=== PATIENT | female | born 1980 | race Caucasian/White ===

== ENCOUNTER 2018-04-20 20:43 | Emergency (ER) | payer OTHER ==
[~2018-04-20] VITALS: Ht 177.8 cm; Wt 117.5 kg
[2018-04-20 20:47] VITALS: Ht 177.8 cm; Wt 117.5 kg
[2018-04-20 22:03] VITALS: BP 129/88
== END 2018-04-20 22:03 | disposition home or self-care (01) ==
LOC: ED 20:43
DX: O13.2 Gestational [pregnancy-induced] hypertension without significant proteinuria, second trimester (principal); Z3A.23 23 weeks gestation of pregnancy

== ENCOUNTER 2020-02-23 13:56 | Inpatient (IN) | payer OTHER, SELFPAY ==
[~2020-02-23] VITALS: Ht 177.8 cm; Wt 127.0 kg
[2020-02-23 14:01] VITALS: Ht 177.8 cm; Wt 127.0 kg
[2020-02-23 15:51] LABS: BASOPHIL % 0.1 % (0-2); PLATELET COUNT 202 x10^3mcL (130-400); RED CELL DISTRIBUTION WIDTH 13.3 % (11.5-14.5)
[2020-02-23 16:03] LABS: CALCIUM 9.2 mg/dL (8.5-10.1); CARBON DIOXIDE 26.4 mmol/L (21-32); CHLORIDE SERUM 98 mmol/L (98-107); CREATININE SERUM 0.9 mg/dL (0.6-1.0); GFR1 > 60 mL/min; GLUCOSE SERUM 142 mg/dL (74-106); POTASSIUM SERUM 4.1 mmol/L (3.5-5.1); SODIUM SERUM 133 mmol/L (136-145)
[2020-02-23 16:15] LABS: ALKALINE PHOSPHATASE 108 U/L (46-116); ALT/SGPT 77 U/L (14-59); AST/SGOT 51 U/L (15-37); BILIRUBIN TOTAL 0.5 mg/dL (0.20-1.00); LACTIC DEHYDROGENASE (LDH) 414 U/L (100-190)
[2020-02-23 16:17] LABS: ALBUMIN 2.9 g/dL (3.4-5.0); TOTAL PROTEIN, SERUM 8.3 g/dL (6.4-8.2)
[2020-02-23 16:25] LABS: C REACTIVE PROTEIN 26.6 mg/dL (<=0.9)
[2020-02-23 17:03] LABS: UA SPECIFIC GRAVITY >=1.030 (1.005-1.035); microscopic required? YES; urine erythrocyte 2+ (NEGATIVE)
[2020-02-23 17:17] VITALS: BP 137/81
[2020-02-23] MEDS ORDERED: BUPROPION300 M1 PO (17:28)
[2020-02-24 00:43] VITALS: BP 117/74
[2020-02-24 05:56] VITALS: BP 112/71
[2020-02-24 08:01] LABS: ALKALINE PHOSPHATASE 96 U/L (46-116); ALT/SGPT 62 U/L (14-59); AST/SGOT 41 U/L (15-37); BILIRUBIN TOTAL 0.31 mg/dL (0.20-1.00); CALCIUM 8.8 mg/dL (8.5-10.1); CARBON DIOXIDE 27.2 mmol/L (21-32); CHLORIDE SERUM 102 mmol/L (98-107); CREATININE SERUM 0.7 mg/dL (0.6-1.0); GFR1 > 60 mL/min; GLUCOSE SERUM 146 mg/dL (74-106); MAGNESIUM 2.6 mg/dL (1.8-2.4); POTASSIUM SERUM 4.1 mmol/L (3.5-5.1); SODIUM SERUM 137 mmol/L (136-145); TOTAL PROTEIN, SERUM 7.4 g/dL (6.4-8.2)
[2020-02-24 08:03] LABS: ALBUMIN 2.4 g/dL (3.4-5.0)
[2020-02-24 09:13] LABS: BASOPHIL % 0.1 % (0-2); PLATELET COUNT 221 x10^3mcL (130-400); RED CELL DISTRIBUTION WIDTH 13.5 % (11.5-14.5)
[2020-02-24 09:16] VITALS: BP 119/70
[2020-02-24 12:29] VITALS: BP 120/70
[2020-02-24 21:14] VITALS: BP 108/64
[2020-02-25 05:45] VITALS: BP 129/64
[2020-02-25 07:27] LABS: ALKALINE PHOSPHATASE 100 U/L (46-116); ALT/SGPT 61 U/L (14-59); AST/SGOT 62 U/L (15-37); CARBON DIOXIDE 29.8 mmol/L (21-32); CHLORIDE SERUM 101 mmol/L (98-107); CREATININE SERUM 0.8 mg/dL (0.6-1.0); GFR1 > 60 mL/min; GLUCOSE SERUM 119 mg/dL (74-106); MAGNESIUM 2.2 mg/dL (1.8-2.4); POTASSIUM SERUM 4.4 mmol/L (3.5-5.1); SODIUM SERUM 138 mmol/L (136-145); TOTAL PROTEIN, SERUM 7.3 g/dL (6.4-8.2)
[2020-02-25 07:31] LABS: ALBUMIN 2.3 g/dL (3.4-5.0)
[2020-02-25 07:52] LABS: BASOPHIL % 0.3 % (0-2); PLATELET COUNT 257 x10^3mcL (130-400); RED CELL DISTRIBUTION WIDTH 13.7 % (11.5-14.5)
[2020-02-25 08:59] VITALS: BP 101/48
[2020-02-25 12:21] VITALS: BP 110/72
[2020-02-25 16:58] VITALS: BP 117/73
[2020-02-25 22:24] VITALS: BP 123/77
[2020-02-26 05:00] VITALS: BP 116/60
[2020-02-26 07:15] LABS: BASOPHIL % 0.4 % (0-2); PLATELET COUNT 288 x10^3mcL (130-400); RED CELL DISTRIBUTION WIDTH 13.9 % (11.5-14.5)
[2020-02-26 07:34] LABS: ALBUMIN 2.3 g/dL (3.4-5.0); ALKALINE PHOSPHATASE 98 U/L (46-116); ALT/SGPT 70 U/L (14-59); AST/SGOT 73 U/L (15-37); BILIRUBIN TOTAL 0.29 mg/dL (0.20-1.00); CHLORIDE SERUM 103 mmol/L (98-107); CREATININE SERUM 0.8 mg/dL (0.6-1.0); GFR1 > 60 mL/min; GLUCOSE SERUM 105 mg/dL (74-106); MAGNESIUM 2.3 mg/dL (1.8-2.4); POTASSIUM SERUM 4.5 mmol/L (3.5-5.1); SODIUM SERUM 142 mmol/L (136-145); TOTAL PROTEIN, SERUM 7.2 g/dL (6.4-8.2)
[2020-02-26 08:47] VITALS: BP 105/60
[2020-02-26 12:11] VITALS: BP 124/82
[2020-02-26 16:12] VITALS: BP 112/68
[2020-02-26 21:29] VITALS: BP 135/85
[2020-02-27 06:18] VITALS: BP 109/69
[2020-02-27 07:36] LABS: BASOPHIL % 0.1 % (0-2); PLATELET COUNT 358 x10^3mcL (130-400); RED CELL DISTRIBUTION WIDTH 12.9 % (11.5-14.5)
[2020-02-27 07:39] LABS: ALKALINE PHOSPHATASE 97 U/L (46-116); ALT/SGPT 86 U/L (14-59); AST/SGOT 88 U/L (15-37); BILIRUBIN DIRECT 0.18 mg/dL (0.0-0.2); BILIRUBIN TOTAL 0.4 mg/dL (0.20-1.00); CALCIUM 9.2 mg/dL (8.5-10.1); CARBON DIOXIDE 31.9 mmol/L (21-32); CHLORIDE SERUM 99 mmol/L (98-107); CREATININE SERUM 0.8 mg/dL (0.6-1.0); GFR1 > 60 mL/min; GLUCOSE SERUM 110 mg/dL (74-106); MAGNESIUM 2.2 mg/dL (1.8-2.4); POTASSIUM SERUM 4.6 mmol/L (3.5-5.1); SODIUM SERUM 137 mmol/L (136-145); TOTAL PROTEIN, SERUM 7.6 g/dL (6.4-8.2)
[2020-02-27 07:40] LABS: ALBUMIN 2.4 g/dL (3.4-5.0)
[2020-02-27 09:20] VITALS: BP 94/47
[2020-02-27 13:35] VITALS: BP 91/49
[2020-02-27 17:29] VITALS: BP 104/64
[2020-02-27 20:42] VITALS: BP 115/72
[2020-02-28 04:22] VITALS: BP 103/58
[2020-02-28 08:05] LABS: BILIRUBIN DIRECT 0.11 mg/dL (0.0-0.2); BILIRUBIN TOTAL 0.3 mg/dL (0.20-1.00); TOTAL PROTEIN, SERUM 6.4 g/dL (6.4-8.2)
[2020-02-28 08:06] LABS: ALKALINE PHOSPHATASE 104 U/L (46-116); ALT/SGPT 107 U/L (14-59); AST/SGOT 107 U/L (15-37); BILIRUBIN TOTAL 0.3 mg/dL (0.20-1.00); CALCIUM 8.8 mg/dL (8.5-10.1); CARBON DIOXIDE 27.8 mmol/L (21-32); CHLORIDE SERUM 99 mmol/L (98-107); CREATININE SERUM 0.7 mg/dL (0.6-1.0); GFR1 > 60 mL/min; GLUCOSE SERUM 107 mg/dL (74-106); MAGNESIUM 2.1 mg/dL (1.8-2.4); POTASSIUM SERUM 4.4 mmol/L (3.5-5.1); SODIUM SERUM 135 mmol/L (136-145); TOTAL PROTEIN, SERUM 7.1 g/dL (6.4-8.2)
[2020-02-28 08:09] LABS: ALBUMIN 2.3 g/dL (3.4-5.0)
[2020-02-28 08:12] LABS: ALBUMIN 2.3 g/dL (3.4-5.0)
[2020-02-28 08:17] VITALS: BP 92/56
[2020-02-28 08:56] LABS: BASOPHIL % 0.6 % (0-2); PLATELET COUNT 344 x10^3mcL (130-400); RED CELL DISTRIBUTION WIDTH 12.7 % (11.5-14.5)
[2020-02-28 11:27] VITALS: BP 122/69
[2020-02-28 17:28] VITALS: BP 119/75
[2020-02-28 20:45] VITALS: BP 116/77
[2020-02-29 05:38] VITALS: BP 100/53
[2020-02-29 07:30] LABS: CALCIUM 9.2 mg/dL (8.5-10.1); CARBON DIOXIDE 27.5 mmol/L (21-32); CHLORIDE SERUM 102 mmol/L (98-107); CREATININE SERUM 0.8 mg/dL (0.6-1.0); GFR1 > 60 mL/min; GLUCOSE SERUM 168 mg/dL (74-106); MAGNESIUM 2.4 mg/dL (1.8-2.4); POTASSIUM SERUM 3.9 mmol/L (3.5-5.1); SODIUM SERUM 136 mmol/L (136-145)
[2020-02-29 08:41] VITALS: BP 104/578
[2020-02-29 10:39] LABS: BILIRUBIN DIRECT 0.12 mg/dL (0.0-0.2); BILIRUBIN TOTAL 0.2 mg/dL (0.20-1.00); TOTAL PROTEIN, SERUM 6.6 g/dL (6.4-8.2)
[2020-02-29 10:45] LABS: ALBUMIN 2.5 g/dL (3.4-5.0)
[2020-02-29 13:07] VITALS: BP 115/82
[2020-02-29 17:54] VITALS: BP 98/54
[2020-02-29 21:29] VITALS: BP 106/63
[2020-03-01 05:41] VITALS: BP 120/67
[2020-03-01 07:43] VITALS: BP 111/77
[2020-03-01 08:08] LABS: BILIRUBIN DIRECT 0.11 mg/dL (0.0-0.2); BILIRUBIN TOTAL 0.22 mg/dL (0.20-1.00); TOTAL PROTEIN, SERUM 7.2 g/dL (6.4-8.2)
[2020-03-01 08:17] LABS: ALBUMIN 2.4 g/dL (3.4-5.0)
[2020-03-01 12:20] VITALS: BP 111/68
[2020-03-01 17:29] VITALS: BP 117/76
[2020-03-01 21:20] VITALS: BP 107/61
[2020-03-02 05:13] VITALS: BP 119/72
[2020-03-02 06:57] LABS: CARBON DIOXIDE 27.1 mmol/L (21-32); CHLORIDE SERUM 100 mmol/L (98-107); CREATININE SERUM 0.7 mg/dL (0.6-1.0); GFR1 > 60 mL/min; GLUCOSE SERUM 116 mg/dL (74-106); MAGNESIUM 2.3 mg/dL (1.8-2.4); POTASSIUM SERUM 3.9 mmol/L (3.5-5.1); SODIUM SERUM 134 mmol/L (136-145)
[2020-03-02 07:07] LABS: BASOPHIL % 0.3 % (0-2); PLATELET COUNT 358 x10^3mcL (130-400); RED CELL DISTRIBUTION WIDTH 12.9 % (11.5-14.5)
[2020-03-02 09:32] VITALS: BP 92/50
[2020-03-02 13:56] VITALS: BP 119/64
[2020-03-02 17:04] VITALS: BP 99/60
[2020-03-02 23:02] VITALS: BP 108/59
[2020-03-03 06:10] VITALS: BP 104/56
[2020-03-03 09:00] VITALS: BP 105/61
[2020-03-03 12:28] VITALS: BP 103/63
[2020-03-03 17:43] VITALS: BP 111/71
[2020-03-03 21:22] VITALS: BP 98/60
[2020-03-04 06:40] VITALS: BP 112/73
[2020-03-04 08:13] LABS: PLATELET COUNT 264 x10^3mcL (130-400); RED CELL DISTRIBUTION WIDTH 13.3 % (11.5-14.5)
[2020-03-04 08:20] LABS: CALCIUM 9.3 mg/dL (8.5-10.1); CARBON DIOXIDE 28.2 mmol/L (21-32); CHLORIDE SERUM 103 mmol/L (98-107); CREATININE SERUM 0.7 mg/dL (0.6-1.0); GFR1 > 60 mL/min; GLUCOSE SERUM 121 mg/dL (74-106); MAGNESIUM 2.3 mg/dL (1.8-2.4); POTASSIUM SERUM 4.3 mmol/L (3.5-5.1); SODIUM SERUM 137 mmol/L (136-145)
[2020-03-04 08:37] LABS: BASOPHIL % 8.6 % (0-2)
[2020-03-04 09:45] VITALS: BP 97/52
[2020-03-04 12:21] VITALS: BP 113/71
[2020-03-04 16:20] VITALS: BP 115/76
[2020-03-04 21:08] VITALS: BP 98/50
[2020-03-05 05:52] VITALS: BP 108/63
[2020-03-05 08:28] LABS: BASOPHIL % 0.8 % (0.2-1.3); PLATELET COUNT 268 x10^3mcL (179-408); RED CELL DISTRIBUTION WIDTH 14.2 % (12.3-17.7)
[2020-03-05 08:44] VITALS: BP 96/57
[2020-03-05 08:50] LABS: ALBUMIN 2.7 g/dL (3.4-5.0); ALKALINE PHOSPHATASE 109 U/L (46-116); ALT/SGPT 292 U/L (14-59); AST/SGOT 117 U/L (15-37); BILIRUBIN TOTAL 0.4 mg/dL (0.20-1.00); CALCIUM 8.9 mg/dL (8.5-10.1); CHLORIDE SERUM 101 mmol/L (98-107); CREATININE SERUM 0.7 mg/dL (0.6-1.0); GFR1 > 60 mL/min; GLUCOSE SERUM 117 mg/dL (74-106); MAGNESIUM 2.3 mg/dL (1.8-2.4); SODIUM SERUM 137 mmol/L (136-145); TOTAL PROTEIN, SERUM 7.1 g/dL (6.4-8.2)
[2020-03-05 12:21] VITALS: BP 96/61
[2020-03-05 15:38] VITALS: BP 104/69
[2020-03-05 22:01] VITALS: BP 99/63
[2020-03-06 06:17] VITALS: BP 106/64
[2020-03-06 07:32] LABS: BASOPHIL % 0.7 % (0.2-1.3); PLATELET COUNT 249 x10^3mcL (179-408); RED CELL DISTRIBUTION WIDTH 13.9 % (12.3-17.7)
[2020-03-06 08:25] LABS: ALKALINE PHOSPHATASE 111 U/L (46-116); ALT/SGPT 274 U/L (14-59); AST/SGOT 112 U/L (15-37); BILIRUBIN TOTAL 0.4 mg/dL (0.20-1.00); CARBON DIOXIDE 29.8 mmol/L (21-32); CHLORIDE SERUM 101 mmol/L (98-107); CREATININE SERUM 0.8 mg/dL (0.6-1.0); GFR1 > 60 mL/min; GLUCOSE SERUM 123 mg/dL (74-106); MAGNESIUM 2.2 mg/dL (1.8-2.4); POTASSIUM SERUM 4.5 mmol/L (3.5-5.1); SODIUM SERUM 137 mmol/L (136-145); TOTAL PROTEIN, SERUM 6.9 g/dL (6.4-8.2)
[2020-03-06 08:30] LABS: ALBUMIN 2.7 g/dL (3.4-5.0)
[2020-03-06 09:21] VITALS: BP 126/80
[2020-03-06 11:53] VITALS: BP 101/61
[2020-03-06 16:55] VITALS: BP 129/85
[2020-03-06 20:05] VITALS: BP 102/67
[2020-03-07 05:23] VITALS: BP 99/57
[2020-03-07 07:30] LABS: PLATELET COUNT 239 x10^3mcL (179-408); RED CELL DISTRIBUTION WIDTH 14.1 % (12.3-17.7)
[2020-03-07 08:57] VITALS: BP 97/65
[2020-03-07 09:25] LABS: ALKALINE PHOSPHATASE 117 U/L (46-116); ALT/SGPT 248 U/L (14-59); AST/SGOT 80 U/L (15-37); BILIRUBIN TOTAL 0.35 mg/dL (0.20-1.00); CARBON DIOXIDE 31.2 mmol/L (21-32); CHLORIDE SERUM 103 mmol/L (98-107); CREATININE SERUM 0.7 mg/dL (0.6-1.0); GFR1 > 60 mL/min; GLUCOSE SERUM 127 mg/dL (74-106); MAGNESIUM 2.3 mg/dL (1.8-2.4); POTASSIUM SERUM 4.9 mmol/L (3.5-5.1); SODIUM SERUM 140 mmol/L (136-145); TOTAL PROTEIN, SERUM 7.1 g/dL (6.4-8.2)
[2020-03-07 09:28] LABS: ALBUMIN 2.8 g/dL (3.4-5.0)
[2020-03-07 12:29] VITALS: BP 116/76
[2020-03-07 16:29] VITALS: BP 116/72
[2020-03-07 23:15] VITALS: BP 105/67
[2020-03-08 05:25] VITALS: BP 114/68; BP 134/79
[2020-03-08 08:21] LABS: BASOPHIL % 1.1 % (0.2-1.3); PLATELET COUNT 222 x10^3mcL (179-408); RED CELL DISTRIBUTION WIDTH 14.2 % (12.3-17.7)
[2020-03-08 08:49] VITALS: BP 103/54
[2020-03-08 09:46] LABS: ALKALINE PHOSPHATASE 111 U/L (46-116); ALT/SGPT 218 U/L (14-59); AST/SGOT 76 U/L (15-37); BILIRUBIN TOTAL 0.3 mg/dL (0.20-1.00); CALCIUM 9.2 mg/dL (8.5-10.1); CARBON DIOXIDE 26.5 mmol/L (21-32); CHLORIDE SERUM 103 mmol/L (98-107); CREATININE SERUM 0.6 mg/dL (0.6-1.0); GFR1 > 60 mL/min; GLUCOSE SERUM 141 mg/dL (74-106); MAGNESIUM 2.3 mg/dL (1.8-2.4); POTASSIUM SERUM 4.3 mmol/L (3.5-5.1); SODIUM SERUM 139 mmol/L (136-145); TOTAL PROTEIN, SERUM 7.1 g/dL (6.4-8.2)
[2020-03-08 09:47] LABS: ALBUMIN 2.9 g/dL (3.4-5.0)
[2020-03-08 11:52] VITALS: BP 116/77
[2020-03-08 16:34] VITALS: BP 114/68
[2020-03-08 21:06] VITALS: BP 116/73
[2020-03-09 05:26] VITALS: BP 106/64
[2020-03-09 07:38] LABS: BASOPHIL % 1.1 % (0.2-1.3); PLATELET COUNT 220 x10^3mcL (179-408); RED CELL DISTRIBUTION WIDTH 14.2 % (12.3-17.7)
[2020-03-09 08:51] LABS: ALKALINE PHOSPHATASE 114 U/L (46-116); ALT/SGPT 205 U/L (14-59); AST/SGOT 65 U/L (15-37); BILIRUBIN TOTAL 0.3 mg/dL (0.20-1.00); CALCIUM 9.2 mg/dL (8.5-10.1); CARBON DIOXIDE 25.9 mmol/L (21-32); CHLORIDE SERUM 103 mmol/L (98-107); CREATININE SERUM 0.8 mg/dL (0.6-1.0); GFR1 > 60 mL/min; GLUCOSE SERUM 201 mg/dL (74-106); MAGNESIUM 1.9 mg/dL (1.8-2.4); POTASSIUM SERUM 3.9 mmol/L (3.5-5.1); SODIUM SERUM 139 mmol/L (136-145); TOTAL PROTEIN, SERUM 6.8 g/dL (6.4-8.2)
[2020-03-09 08:55] LABS: ALBUMIN 2.8 g/dL (3.4-5.0)
[2020-03-09 08:56] VITALS: BP 100/60
[2020-03-09] MEDS ORDERED: SYMBICORT1 AE3 IH (10:19)
[2020-03-09] MEDS ORDERED: VENTOLIN H0.09 MG/A1 INH (10:20)
[2020-03-09 14:25] VITALS: BP 97/53
[2020-03-09 17:36] VITALS: BP 116/73
[2020-03-09 21:02] VITALS: BP 112/67
[2020-03-10 05:42] VITALS: BP 91/52
[2020-03-10 08:46] VITALS: BP 99/61
[2020-03-10] MEDS ORDERED: QUALITY CHOICE PO (08:47)
[2020-03-10] MEDS ORDERED: ELIQUIS5 MG PO (08:47)
[2020-03-10 12:31] VITALS: BP 114/72
[2020-03-10 16:25] VITALS: BP 125/81
== END 2020-03-10 18:57 | disposition home or self-care (01) | DRG 137 ==
LOC: ED 13:56 → DU 16:54
PROVIDERS: Emergency Medicine; Internal Medicine Infectious Disease; Internal Medicine Pulmonary Disease; ADMIT Hospitalist; ATTEND Hospitalist
PROC: XW13325 Transfusion of Convalescent Plasma (Nonautologous) into Peripheral Vein, Percutaneous Approach, New Technology Group 5 (ICD-10-PCS; 2020-02-25)
PROC: XW033E5 Introduction of Remdesivir Anti-infective into Peripheral Vein, Percutaneous Approach, New Technology Group 5 (ICD-10-PCS; principal; 2020-02-26)
DX: U07.1 COVID-19 (principal); J96.01 Acute respiratory failure with hypoxia; J12.89 Other viral pneumonia; E87.1 Hypo-osmolality and hyponatremia; E66.01 Morbid (severe) obesity due to excess calories; D68.59 Other primary thrombophilia; F41.9 Anxiety disorder, unspecified; F32.9 Major depressive disorder, single episode, unspecified; R74.01 Elevation of levels of liver transaminase levels; Z68.41 Body mass index [BMI] 40.0-44.9, adult; E11.9 Type 2 diabetes mellitus without complications; B95.62 Methicillin resistant Staphylococcus aureus infection as the cause of diseases classified elsewhere
CPT/HCPCS: 82962; 83880; 85378; 87804; C9113; G0378; J0456; J0696; J1100; J1650; J3535; J7030; J7040; J7050; J7060; U0003